=== PATIENT | male | born 1995 | race African-American/Black ===

== ENCOUNTER 2021-06-21 15:19 | Emergency (ER) | payer OTHER ==
[~2021-06-21] VITALS: Ht 182.9 cm; Wt 134.7 kg
[2021-06-21] MEDS ORDERED: BUTALB-APAP-CA1 EACH PO (17:50)
[2021-06-21] MEDS ORDERED: IBUPROFEN 800800 M1 PO (17:53)
[2021-06-21 18:02] VITALS: BP 154/88
== END 2021-06-21 18:03 | disposition home or self-care (01) ==
LOC: M.ERS 15:19
DX: S06.0X9A Concussion with loss of consciousness of unspecified duration, initial encounter (principal); Z98.890 Other specified postprocedural states; Z88.2 Allergy status to sulfonamides; Z88.8 Allergy status to other drugs, medicaments and biological substances; W22.8XXA Striking against or struck by other objects, initial encounter; Y93.19 Activity, other involving water and watercraft; Y92.89 Other specified places as the place of occurrence of the external cause; Y99.8 Other external cause status